=== PATIENT | female | born 1945 | race Caucasian/White ===

== ENCOUNTER → 2017-06-23 | Outpatient (CLI) | payer OTHER ==
--- NOTE | 2017-06-23 14:55 | PCVCIMAG ---
APPROVED REPORT Indications Stenosis History of Smoking Risk Factors Hypertension: Doppler Spectral Velocity Analysis PSV / EDVPSV / EDV ECA (R) 75 / 15 cm/sECA (L) 77 / 18 cm/s dICA (R) 79 / 31 cm/sdICA (L) 74 / 30 cm/s Ar (R) 85 / 30 cm/smICA (L) 89 / 36 cm/s pICA (R) 54 / 18 cm/spICA (L) 64 / 18 cm/s Bulb (R) 58 / 19 cm/sBulb (L) 51 / 15 cm/s dCCA (R) 56 / 20 cm/sdCCA (L) 62 / 22 cm/s mCCA (R) 64 / 15 cm/smCCA (L) 67 / 23 cm/s Vert (R) 64 / 21 cm/sVert (L) 89 / 31 cm/s ICA/CCA 1.52ICA/CCA 1.44 Basic Measurements Blood Pressure: Pulses: Right Left RightLeft Brachial(Sitting) 142/[id number]/91mmHgTemporal Real Time B-Mode Imaging Vert. (R)AntegradeVert. (L)Antegrade Findings The right carotid bulb has moderate calcified plaque. The right proximal internal carotid artery shows <40% stenosis. The right common carotid artery shows no significant stenosis. The right external carotid artery shows no significant stenosis. The left carotid bulb has moderate calcified plaque. The left proximal internal carotid artery shows <40% stenosis. The left common carotid artery shows no significant stenosis. The left external carotid artery shows no significant stenosis. Conclusion 1. Right internal carotid artery stenosis (<40%) 2. Left internal carotid artery stenosis (<40%) 3. Antegrade vertebral flow
--- NOTE | 2017-06-23 14:57 | PCVCIMAG ---
APPROVED REPORT Exam: Stress Echocardiogram Indication: Hyperlipidemia, Hypertension Patient Location: Echo lab Stress Nurse: Yuridia eSrna RN Status: routine Ht: 5 ft 3 in HR: 51 bpm BP: 142/80 mmHg Rhythm: NSR Procedure The patient underwent an Exercise Stress Test using the Sg Protocol. Blood pressure, heart rate, and EKG were monitored. An Echocardiogram was performed by emergency veterinary technician in four stages in quad fashion. At peak stress, four selected images were obtained and placed side by side with resting images for comparison. Stress Test Details Stress Test: Exercise stress testing was performed using a Sg protocol. HR Resting HR: 51 bpmMax Heart Rate (APMHR): 151 bpm Max HR Achieved: 142 bpmTarget HR (85% APMHR): 128 bpm % of APMHR: 94 HR response to stress: Normal HR response to stress BP Resting BP: 142/80 mmHg Max BP: 166/80 mmHg ECG Resting ECG: Sinus Rhythm Stress ECG: Sinus Rhythm ST Change: Normal Maximum ST Deviation: 0 mm Arrhythmia: VPC's Recovery ECG: Sinus Rhythm Recovery ST Change: Normal Recovery ST Deviation: 0 mm Clinical Reason for Termination: Maximal effort Exercise duration: 5 min sec Highest Stage Achieved: Stage 2: 2.5 mph at 12% grade. Overall Exercise Capacity for Age: Average Angina Score: None Stress ECG Conclusion ECG: Non-ischemic Clinical: Non-ischemic Christian Treadmill Score is 5.0 which is Low risk. Pre-Stress Echo The resting Echocardiogram showed normal left ventricular contractility with an estimated Ejection Fraction of about >55%. Normal wall motion in all segments on baseline images. Post-Stress Echo The stress Echocardiogram showed normal left ventricular contractility with an estimated Ejection Fraction of about 60-65%. Normal augmentation of wall motion in all segments on post stress images. Clinical No clinical or ECG evidence for ischemia. Conclusion Clinical Response: Non-ischemic Exercise Capacity: Average Stress ECG Response: Non-ischemic Stress Echo Images: Non-ischemic The left ventricle is normal in size and wall thickness in both the rest and stress images. Normal stress echocardiogram with maximal exercise stress. <Conclusion> The left ventricle is normal in size and wall thickness in both the rest and stress images. Normal stress echocardiogram with maximal exercise stress.
== END | disposition home or self-care (01) ==
LOC: PCVCIMAG 12:29
PROVIDERS: ATTEND Internal Medicine
DX: I25.10 Atherosclerotic heart disease of native coronary artery without angina pectoris (principal); E78.2 Mixed hyperlipidemia; I10 Essential (primary) hypertension; I65.23 Occlusion and stenosis of bilateral carotid arteries; Z87.891 Personal history of nicotine dependence; Z79.82 Long term (current) use of aspirin; Z79.899 Other long term (current) drug therapy
CPT/HCPCS: 93325; 93351; 93880; G0463

== ENCOUNTER → 2018-10-05 | Outpatient (CLI) | payer OTHER | END | disposition home or self-care (01) | LOC: PCVCCLINIC 13:50 | PROVIDERS: ATTEND Internal Medicine | DX: I25.10 Atherosclerotic heart disease of native coronary artery without angina pectoris (principal); E78.2 Mixed hyperlipidemia; I10 Essential (primary) hypertension; I65.23 Occlusion and stenosis of bilateral carotid arteries; Z87.891 Personal history of nicotine dependence | CPT/HCPCS: 36415; 80061; 93005; G0463 ==

== ENCOUNTER → 2019-04-05 | Outpatient (CLI) | payer OTHER ==
--- NOTE | 2019-04-05 14:28 | PCVCIMAG ---
APPROVED REPORT Study performed: 04/05/2019 12:54:33 Exam: Stress Echocardiogram Indication: CAD, Dyspnea Patient Location: Echo lab Stress Nurse: Katy Brown RN Status: routine Ht: 5 ft 2 in HR: 58 bpm BP: 132/82 mmHg Rhythm: NSR Medical History Medical History: HTN, Hyperlipidemia, COPD Procedure The patient underwent an Exercise Stress Test using the Sg Protocol. Blood pressure, heart rate, and EKG were monitored. An Echocardiogram was performed by master motorcycle technician in four stages in quad fashion. At peak stress, four selected images were obtained and placed side by side with resting images for comparison. Stress Test Details Stress Test: Exercise stress testing was performed using a Sg protocol. HR Resting HR: 58 bpmMax Heart Rate (APMHR): 149 bpm Max HR Achieved: 137 bpmTarget HR (85% APMHR): 126 bpm % of APMHR: 91 Recovery HR: 73 bpm HR response to stress: Normal HR response to stress BP Resting BP: 132/82 mmHg Max BP: 150/86 mmHg Recovery BP: 124/74 mmHg BP response to stress: Normal blood pressure response to stress. ECG Resting ECG: Sinus Rhythm Stress ECG: Sinus Rhythm ST Change: Normal Maximum ST Deviation: 0 mm Arrhythmia: None Recovery ECG: Sinus Rhythm Recovery ST Change: Normal Recovery ST Deviation: 0 mm Recovery Arrhythmia: None Clinical Reason for Termination: Maximal effort, Dyspnea Exercise duration: 5 min 00 sec Highest Stage Achieved: Stage 2: 2.5 mph at 12% grade. Exercise capacity: 7.00 METs Overall Exercise Capacity for Age: Average Angina Score: None Stress ECG Conclusion ECG: Non-ischemic Clinical: Non-ischemic Christian Treadmill Score is 5.0 which is Low risk. Pre-Stress Echo The resting Echocardiogram showed normal left ventricular contractility with an estimated Ejection Fraction of about >55%. Normal wall motion in all segments on baseline images. Post-Stress Echo The stress Echocardiogram showed normal left ventricular contractility with an estimated Ejection Fraction of about 60-65%. Normal augmentation of wall motion in all segments on post stress images. Clinical No clinical or ECG evidence for ischemia. Conclusion Clinical Response: Non-ischemic Exercise Capacity: Average Stress ECG Response: Non-ischemic Stress Echo Images: Non-ischemic The left ventricle is normal in size and wall thickness in both the rest and stress images. No clinical, EKG or echocardiographic evidence for ischemia. Normal stress echocardiogram with maximal exercise stress. Other Information Study Quality: Adequate <Conclusion> The left ventricle is normal in size and wall thickness in both the rest and stress images. No clinical, EKG or echocardiographic evidence for ischemia. Normal stress echocardiogram with maximal exercise stress.
== END | disposition home or self-care (01) ==
LOC: PCVCIMAG 12:39
PROVIDERS: ATTEND Internal Medicine
DX: I25.10 Atherosclerotic heart disease of native coronary artery without angina pectoris (principal); I10 Essential (primary) hypertension; E78.2 Mixed hyperlipidemia; I65.23 Occlusion and stenosis of bilateral carotid arteries; R79.89 Other specified abnormal findings of blood chemistry
CPT/HCPCS: 93325; 93351